=== PATIENT | male | born 1935 | race Caucasian/White ===

== ENCOUNTER 2023-07-21 06:44 | Inpatient (IN) | payer OTHER ==
[~2023-07-21] VITALS: Ht 172.7 cm; Wt 84.9 kg
[2023-07-21 07:26] LABS: Basophils # (auto) 0 10 ^3/uL (0-0.2); Basophils % (auto) 0.5 % (0.0-2.0); Eosinophils # (auto) 0 10 ^3/uL (0-0.8); Hematocrit 38.5 % (41.0-53.0); Hemoglobin 12.7 g/dL (13.5-17.5); Lymphocytes # (auto) 0.7 10 ^3/uL (0.4-5.4); Lymphocytes % (auto) 8.2 % (10.0-50.0); Mean Corpuscular Hgb Conc. 33.1 g/dL (32.0-36.0); Mean Corpuscular Volume 93.7 fL (80.0-100.0); Monocytes % (auto) 10.7 % (0.0-12.0); Neutrophils # (auto) 7.3 10 ^3/uL (1.6-8.6); Neutrophils % (auto) 80.6 % (37.0-80.0); Red Cell Distribution Width 14.8 % (11.8-14.3); White Blood Cell 9.1 10^3/uL (4.4-10.8)
[2023-07-21 07:43] LABS: Alanine Aminotransferase 10 U/L (7-40); Albumin 4.1 g/dL (3.2-4.8); Alkaline Phosphatase 71 U/L (46-116); Anion Gap 10 (5-15); Aspartate Aminotransferase 11 U/L (13-40); BUN/Creatinine Ratio 12.1 (10.0-20.0); Blood Urea Nitrogen 12 mg/dL (9-23); Calcium 9.4 mg/dL (8.7-10.4); Carbon Dioxide 25 mmol/L (20-30); Chloride 106 mmol/L (98-107); Glucose 165 mg/dL (74-106); Potassium 3.2 mmol/L (3.5-5.1); Sodium 141 mmol/L (136-145); Total Protein 6.4 g/dL (5.7-8.2)
[2023-07-21] MEDS: NITROGLYCERIN 0.4 MG SL TAB SL ONE (08:30)
[2023-07-21 10:24] VITALS: PULSE 76; RESP 16; O2SAT 96
[2023-07-21] MEDS: FUROSEMIDE 20 MG/2 ML VIAL IV ONE (11:48)
[2023-07-21] MEDS: MORPHINE SULFATE INJ 2 MG/ml SYRG IV ONE (11:48)
[2023-07-21] MEDS: ENOXAPARIN SOD 100 MG/1 ML SYRINGE SC ONE (11:48)
[2023-07-21] MEDS: ASPirin 325 MG TAB PO ONE (11:48)
[2023-07-21] MEDS: ONDANSETRON HCL 4 MG/2 ML VIAL IV ONE (11:49)
[2023-07-21] MEDS ORDERED: ACETAMINOPHEN 325 MG TAB PO PRN (12:00)
[2023-07-21] MEDS ORDERED: MORPHINE SULFATE INJ 2 MG/ml SYRG IV PRN (12:00)
[2023-07-21] MEDS ORDERED: ONDANSETRON HCL 4 MG/2 ML VIAL IV PRN (12:00)
[2023-07-21] MEDS ORDERED: HYDROcodone-ACET 5/325MG TAB PO PRN (12:00)
[2023-07-21] MEDS ORDERED: DOCUSATE SOD 100 MG CAP PO PRN (12:00)
[2023-07-21] MEDS ORDERED: NITROGLYCERIN 0.4 MG SL TAB SL PRN (12:00)
[2023-07-21] MEDS ORDERED: FURO40TA4 PO (12:20)
[2023-07-21] MEDS ORDERED: TERA5CAP58 PO (12:20)
[2023-07-21] MEDS ORDERED: METF-372 PO (12:20)
[2023-07-21] MEDS ORDERED: GLIP5TAB21 PO (12:20)
[2023-07-21] MEDS ORDERED: INSUINJ2 SC (12:20)
[2023-07-21] MEDS ORDERED: ATOR20TA50 PO (12:20)
[2023-07-21] MEDS ORDERED: TRIA0.5O2 TOP (12:20)
[2023-07-21] MEDS ORDERED: OXYB5SYP4 PO (12:20)
[2023-07-21] MEDS ORDERED: HYDR50TA47 PO (12:20)
[2023-07-21] MEDS ORDERED: LISI-285 PO (12:20)
[2023-07-21] MEDS ORDERED: OMEP20TA PO (12:20)
[2023-07-21] MEDS ORDERED: BISO5TAB44 PO (12:20)
[2023-07-21] MEDS ORDERED: POTA-228 PO (12:20)
[2023-07-21 12:33] LABS: INR 1.13 (0.9-1.15); Partial Thromboplastin Time 32.7 SEC (24.5-34.5); Prothrombin Time 11.9 sec (9.3-11.8)
[2023-07-21 13:03] LABS: Urine Bacteria FEW /hpf (None Seen); Urine Blood 1+ /uL (Negative); Urine Clarity Turbid (Clear); Urine Color Light-Yellow (Yellow); Urine Protein, UAD 1+ (Negative); Urine Urobilinogen Normal (Negative); Urine WBC 173 /hpf (0 - 3); Urine pH 6.5 (5.0-9.0)
[2023-07-21] MEDS ORDERED: DEXTROSE (50%) 50ML SYRG IV PRN (13:30)
[2023-07-21 13:36] VITALS: BP 144/71; PULSE 71; RESP 20; O2SAT 98
[2023-07-21] MEDS: CIPROFLOXACIN 400MG/200ML 200 ML IV ONE (13:45)
[2023-07-21] MEDS ORDERED: hydrALAZINE HCL 25 MG TAB PO SCH (14:00)
[2023-07-21 16:40] VITALS: BP 156/75; PULSE 77; RESP 18; O2SAT 97
[2023-07-21] MEDS: ACCU-CHEK COMFORT CURVE STRIP VI SCH (17:00)
[2023-07-21] MEDS: POTASSIUM EFFERVESENT TAB 25 MEQ PO ONE (19:17)
[2023-07-21] MEDS: TERAZOSIN HCL 5 MG CAP PO SCH (19:20)
[2023-07-21] MEDS: InsuLIN REG 1unit/0.01ml Soln (100units/ml) SC SCH (19:32)
[2023-07-21 20:21] VITALS: PULSE 95; RESP 16; O2SAT 98
[2023-07-21 21:00] VITALS: BP 156/67; PULSE 72; RESP 20; TEMP 98.8; O2SAT 98
[2023-07-21] MEDS: ENOXAPARIN SOD 100 MG/1 ML SYRINGE SC SCH (21:32)
[2023-07-21] MEDS: CIPROFLOXACIN 400MG/200ML 200 ML IV SCH (21:32)
[2023-07-22] VITALS (9 sets, daily range): BP systolic 114–141; BP diastolic 50–64; PULSE 60–98; RESP 18–19; TEMP 97.7–98.8; O2SAT 92–99
[2023-07-22] MEDS: FUROSEMIDE 20 MG/2 ML VIAL IV SCH (05:44)
[2023-07-22 06:11] LABS: Basophils # (auto) 0 10 ^3/uL (0-0.2); Basophils % (auto) 0.3 % (0.0-2.0); Eosinophils # (auto) 0 10 ^3/uL (0-0.8); Eosinophils % (auto) 0.1 % (0.0-7.0); Hematocrit 36.4 % (41.0-53.0); Lymphocytes # (auto) 0.5 10 ^3/uL (0.4-5.4); Mean Corpuscular Hemoglobin 31.2 pg (28.0-32.0); Mean Corpuscular Volume 94.6 fL (80.0-100.0); Monocytes % (auto) 14.3 % (0.0-12.0); Neutrophils # (auto) 5.5 10 ^3/uL (1.6-8.6); Neutrophils % (auto) 78.3 % (37.0-80.0); Nucleated Red Blood Cells % 0.1 %; Red Blood Cells 3.85 10^6/uL (4.5-5.90); Red Cell Distribution Width 14.8 % (11.8-14.3); White Blood Cell 7.1 10^3/uL (4.4-10.8)
[2023-07-22 06:26] LABS: Alanine Aminotransferase 11 U/L (7-40); Albumin 3.7 g/dL (3.2-4.8); Alkaline Phosphatase 68 U/L (46-116); Anion Gap 9 (5-15); Aspartate Aminotransferase 12 U/L (13-40); BUN/Creatinine Ratio 12.9 (10.0-20.0); Bilirubin, Total 0.9 mg/dL (0.2-1.0); Blood Urea Nitrogen 13 mg/dL (9-23); Calcium 9.3 mg/dL (8.7-10.4); Carbon Dioxide 27 mmol/L (20-30); Chloride 105 mmol/L (98-107); Glucose 202 mg/dL (74-106); Potassium 3.4 mmol/L (3.5-5.1); Sodium 141 mmol/L (136-145); Total Protein 6.2 g/dL (5.7-8.2)
[2023-07-22] MEDS: POTASSIUM EFFERVESENT TAB 25 MEQ PO SCH (09:54)
[2023-07-22] MEDS: ATORVASTATIN 20 MG TAB PO SCH (09:55)
[2023-07-22] MEDS: ASPirin-EC 81 mg tab PO SCH (09:55)
[2023-07-22] MEDS: ATENOLOL 25 MG TAB PO SCH (09:55)
[2023-07-22] MEDS: hydroCHLOROthiazide 25 MG TAB PO SCH (09:56)
[2023-07-22] MEDS: LISINOPRIL 20 MG TAB PO SCH (09:57)
[2023-07-22] MEDS: PANTOPRAZOLE 40 MG TAB PO SCH (09:59)
[2023-07-22] MEDS ORDERED: OXYBUTYNIN CHL 5 MG TAB PO SCH (10:00)
[2023-07-22] MEDS: POTASSIUM EFFERVESENT TAB 25 MEQ PO ONE (11:15)
[2023-07-23 01:00] VITALS: BP_SYST 140; BP_SYST 152; BP_DIAS 66; BP_DIAS 89; PULSE 74; PULSE 92; RESP 18; TEMP 97.5; O2SAT 96; O2SAT 98
[2023-07-23 05:00] VITALS: BP 149/76; PULSE 79; RESP 18; TEMP 97.4; O2SAT 93
[2023-07-23 06:27] LABS: Basophils # (auto) 0 10 ^3/uL (0-0.2); Basophils % (auto) 0.3 % (0.0-2.0); Eosinophils # (auto) 0 10 ^3/uL (0-0.8); Eosinophils % (auto) 0.3 % (0.0-7.0); Hematocrit 36.6 % (41.0-53.0); Lymphocytes # (auto) 0.5 10 ^3/uL (0.4-5.4); Lymphocytes % (auto) 5.9 % (10.0-50.0); Mean Corpuscular Hemoglobin 31.1 pg (28.0-32.0); Mean Corpuscular Hgb Conc. 32.7 g/dL (32.0-36.0); Monocytes # (auto) 0.9 10 ^3/uL (0-1.3); Neutrophils # (auto) 7.7 10 ^3/uL (1.6-8.6); Neutrophils % (auto) 83.5 % (37.0-80.0); Nucleated Red Blood Cells % 0.1 %; Red Blood Cells 3.85 10^6/uL (4.5-5.90); Red Cell Distribution Width 14.7 % (11.8-14.3); White Blood Cell 9.2 10^3/uL (4.4-10.8)
[2023-07-23 06:40] LABS: Chloride 104 mmol/L (98-107); Potassium 3.6 mmol/L (3.5-5.1); Sodium 144 mmol/L (136-145)
[2023-07-23 06:41] LABS: Anion Gap 6 (5-15); Calcium 9.8 mg/dL (8.7-10.4); Carbon Dioxide 34 mmol/L (20-30)
[2023-07-23 06:46] LABS: BUN/Creatinine Ratio 17.9 (10.0-20.0); Blood Urea Nitrogen 19 mg/dL (9-23); Glucose 167 mg/dL (74-106)
[2023-07-23 08:00] VITALS: PULSE 77
[2023-07-23 08:46] VITALS: BP 98/65; PULSE 75; RESP 18; O2SAT 91
[2023-07-23] MEDS: ATENOLOL 25 MG TAB PO SCH (10:00)
[2023-07-23 13:00] VITALS: BP 133/64; PULSE 73; RESP 18; O2SAT 92
[2023-07-23] MEDS: Glucerna Carbsteady SHAKE Vanilla 8oz PO SCH (18:00)
[2023-07-23 20:00] VITALS: PULSE 81
[2023-07-24 05:00] VITALS: BP 141/77; PULSE 80; RESP 20; TEMP 97.9; O2SAT 97
[2023-07-24 07:00] LABS: Chloride 101 mmol/L (98-107); Potassium 3.2 mmol/L (3.5-5.1); Sodium 140 mmol/L (136-145)
[2023-07-24 07:01] LABS: Anion Gap 7 (5-15); Basophils # (auto) 0 10 ^3/uL (0-0.2); Basophils % (auto) 0.2 % (0.0-2.0); Calcium 9.3 mg/dL (8.5-10.1); Carbon Dioxide 32 mmol/L (20-30); Eosinophils # (auto) 0.1 10 ^3/uL (0-0.8); Eosinophils % (auto) 0.8 % (0.0-7.0); Hematocrit 34.6 % (41.0-53.0); Hemoglobin 11.4 g/dL (13.5-17.5); Lymphocytes # (auto) 0.6 10 ^3/uL (0.4-5.4); Lymphocytes % (auto) 6.8 % (10.0-50.0); Mean Corpuscular Hemoglobin 31.3 pg (28.0-32.0); Mean Corpuscular Volume 94.7 fL (80.0-100.0); Monocytes # (auto) 0.8 10 ^3/uL (0-1.3); Neutrophils # (auto) 7.7 10 ^3/uL (1.6-8.6); Neutrophils % (auto) 83.2 % (37.0-80.0); Nucleated Red Blood Cells % 0.2 %; Red Blood Cells 3.65 10^6/uL (4.5-5.90); Red Cell Distribution Width 14.4 % (11.8-14.3); White Blood Cell 9.2 10^3/uL (4.4-10.8)
[2023-07-24 07:06] LABS: BUN/Creatinine Ratio 17.3 (10.0-20.0); Blood Urea Nitrogen 14 mg/dL (9-23); Glucose 180 mg/dL (74-106)
[2023-07-24 08:00] VITALS: PULSE 77
[2023-07-24 08:35] VITALS: BP 148/71; PULSE 91; RESP 18; TEMP 98.1; O2SAT 91
[2023-07-24] MEDS: FUROSEMIDE 20 MG/2 ML VIAL IV SCH (09:48)
[2023-07-24] MEDS: ENOXAPARIN SOD 40 MG/0.4 ML SYRINGE SC SCH (11:52)
[2023-07-24] MEDS: POTASSIUM CHL 20 Meq TABLET PO ONE (11:52)
[2023-07-24 12:34] VITALS: BP 137/78; PULSE 73; RESP 16; TEMP 98.3; O2SAT 95
[2023-07-24 16:41] VITALS: BP 137/70; PULSE 84; RESP 16; TEMP 98.2; O2SAT 97
[2023-07-25] MEDS ORDERED: POTASSIUM EFFERVESENT TAB 25 MEQ PO SCH (10:00)
== END 2023-07-24 18:15 | disposition short-term general hospital (02) | DRG 280 ==
LOC: ER 06:44 → EDBD 06:44 → TELE 12:01 → TELE-WESTW 12:01
PROVIDERS: ADMIT Internal Medicine; ATTEND Internal Medicine
DX: I11.0 Hypertensive heart disease with heart failure (principal); I50.43 Acute on chronic combined systolic (congestive) and diastolic (congestive) heart failure; I21.A1 Myocardial infarction type 2; J96.21 Acute and chronic respiratory failure with hypoxia; J15.69 Pneumonia due to other Gram-negative bacteria; J15.9 Unspecified bacterial pneumonia; N39.0 Urinary tract infection, site not specified; E87.6 Hypokalemia; E78.5 Hyperlipidemia, unspecified; N40.0 Benign prostatic hyperplasia without lower urinary tract symptoms; E11.42 Type 2 diabetes mellitus with diabetic polyneuropathy; K21.9 Gastro-esophageal reflux disease without esophagitis; I27.20 Pulmonary hypertension, unspecified; Z88.0 Allergy status to penicillin; Z80.9 Family history of malignant neoplasm, unspecified; Z63.4 Disappearance and death of family member
CPT/HCPCS: 36415; 71045; 80048; 80053; 81001; 82962; 83036; 83880; 84443; 84484; 85025; 85610; 85730; 87086; 87088; 87186; 93005; 93306; 96374; 96375; 97110; 97116; 97163; 97530; 99291; G0378; J1815; J2405